=== PATIENT | female | born 1950 | race Caucasian/White ===

== ENCOUNTER 2017-11-27 06:21 | Day surgery (SDC) | payer OTHER ==
[~2017-11-27 06:21] MED LIST: B-12500 MCG PO; CALCIUM + D3 E1 EACH PO; ENALAPRIL MALEAT5 MG PO; LIPITOR20 MG PO; METFORMIN HCL500 MG PO
[2017-11-27] MEDS ORDERED: ADVIL200 MG PO (08:42)
== END 2017-11-27 12:15 | disposition home or self-care (01) ==
LOC: CIR.AMB 06:21
DX: N95.0 Postmenopausal bleeding (principal)

== ENCOUNTER 2017-11-28 08:31 | Outpatient (CLI) | payer OTHER ==
[~2017-11-28 08:31] MED LIST changes: +ADVIL200 MG PO
== END 2017-11-28 17:00 | disposition home or self-care (01) ==
LOC: TOM 08:31
DX: R31.21 Asymptomatic microscopic hematuria (principal)

== ENCOUNTER 2023-05-29 06:44 | Day surgery (SDC) | payer OTHER ==
[~2023-05-29 06:44] MED LIST changes: +IRBESARTAN75 MG PO; +JANUMET 50-5001 EACH PO
== END 2023-05-29 14:15 | disposition home or self-care (01) ==
LOC: CIR.AMB 06:44
PROVIDERS: ATTEND Obstetrics & Gynecology
DX: N95.0 Postmenopausal bleeding (principal); N88.2 Stricture and stenosis of cervix uteri; I10 Essential (primary) hypertension; Z20.822 Contact with and (suspected) exposure to COVID-19